=== PATIENT | male | born 1965 | race Caucasian/White ===

== ENCOUNTER 2025-06-30 12:33 | Emergency (ER) | payer OTHER, SELFPAY ==
[2025-06-30 12:47] VITALS: BP 148/89
[2025-06-30 13:14] VITALS: BMI 30.4
[2025-06-30 13:23] LABS: Hematocrit 48.3 % (39.0-52.0); Hemoglobin 16.5 g/dL (13.0-18.0); Mean Corp Hgb Conc. 34.2 g/dL (33.0-37.0); Mean Corpuscular Volume 84.6 fL (80.0-94.0); Nucleated Red Blood Cells % 0 % (-); Platelet Count 209 10^3/uL (130-400); Red Cell Dist. Width 12.5 % (11.5-14.5)
[2025-06-30] MEDS: PEPCID 20 MG IV (13:30)
[2025-06-30] MEDS: CARAFATE SUSPENSION 1 GM PO (13:30)
[2025-06-30 13:45] LABS: ALT (SGPT) 55 U/L (0-50); AST (SGOT) 45 U/L (17-59); Albumin 4.2 g/dl (3.5-5.0); Alkaline Phosphatase 69 U/L (38-126); Blood Urea Nitrogen 16 mg/dl (9-20); Calcium 9.9 mg/dl (8.4-10.2); Carbon Dioxide 25 mmol/L (22-30); Chloride 106 mmol/L (98-107); Estimated Creatinine Clearance 84 ml/min; Glucose 114 mg/dl (70-99); Lipase 126 U/L (23-300); Potassium 4.2 mmol/L (3.5-5.1); Sodium 135 mmol/L (135-145); Total Protein 7.1 g/dl (6.3-8.2); eGFR > 60.00
--- NOTE | 2025-06-30 14:26 | ED.GENMED ---
History of Present Illness
General
Chief Complaint: Abdominal Symptoms
Time Seen by Provider: 06/30/25 13:01
History of Present Illness
History of Present Illness:
60-year-old male with history of migraines presents to the emergency department for evaluation of epigastric pain for the past 2 to 3 weeks resulting in anorexia and poor appetite, reports severe increase in pain within seconds to minutes of
ingestion of any food. Prior history of cholecystectomy. No fevers or chills. No vomiting or melena. Does not take NSAIDs often but does use oral tobacco products. Reports pain is constant but does worsen after food intake, never seems to find
any relief
Past History
Past History
ED Past Medical History: Other (Diverticulitis, kidney stones, 'fibromyalgia the lower legs')
ED Past Surgical History: Orthopedic and Other (Partial thyroidectomy)
Patient has exhibited threatening behavior?: No
PSI?: No
Social History
Tobacco: Former smoker
Alcohol: Occasional
Drug: None
Personal:
Living: with family
Family History
Family History: Other (diabetes, stroke, osteoporosis)
Review of Systems
Review of Systems
Allergies reviewed?: Yes
All Other Systems: ROS reviewed and negative except as documented in HPI and ROS
Phy Exam
Physical Exam
Physical Exam:
GEN: Well appearing, NAD, WDWN
HEENT: Oral mucosa moist, no scleral icterus
Cardiac: Regular rate
Lung: No respiratory distress, no tachypnea
Abdomen: Soft, minimal to no epigastric tenderness, no rigidity or masses
MSK: No gross deformity or injuries
Skin: Good color, no pallor or jaundice, no rashes
Neuro: AO x3, moves all extremities freely
Psych: Calm, cooperative
Course
Orders/Labs/Results
Orders:
Orders
06/30/25 13:11
Famotidine [Pepcid] 20 mg IV NOW STA
Sucralfate Suspension [Carafate Suspension] 1 gm PO NOW STA
06/30/25 13:15
Complete Blood Count/With Diff Urgent
Comprehensive Metabolic Panel Urgent
Lipase Urgent
06/30/25 13:22
Sucralfate Suspension [Carafate Suspension] 1 gm .ROUTE .STK-MED ONE
Abnormal Lab Results
06/30/25
13:15
Absolute Monos (auto) 0.7 H 10^3/uL
(0.1-0.6)
Lymphocytes % 20.4 L %
(20.5-51.1)
Glucose 114 H mg/dl
(70-99)
Total Bilirubin 1.5 H mg/dl
(0.2-1.3)
ALT 55 H U/L
(0-50)
06/30/25 13:15
06/30/25 13:15
Vital Signs
Initial and Last Documented VS:
Initial Vital Signs
Temp Pulse Resp BP Pulse Ox
98.0 F 54 20 148/89 94
06/30/25 12:47 06/30/25 12:47 06/30/25 12:47 06/30/25 12:47 06/30/25 12:47
Last Documented Vital Signs
Temp Pulse Resp BP Pulse Ox
98.0 F 54 20 148/89 94
06/30/25 12:47 06/30/25 12:47 06/30/25 12:47 06/30/25 12:47 06/30/25 14:30
MDM/Problems Addressed
MDM/Problems Addressed:
Abdominal exam is benign and labs are reassuring, clinical picture most consistent with peptic ulcer disease given recurrence of pain after eating. Less likely SMA syndrome given that pain is present consistently and not only after eating. Will
treat with H2 alexandra, PPI, Carafate, and recommend close GI follow-up
*Pulse Oximetry
SaO2: 94
Oxygen Mode of Delivery: Room air
Patient hypoxic: no
*Critical Care Note
Total Time (30-74mins, 75-104mins- exclusive of procedures): Not Applicable
ED Attending Note
-
Portions of this chart may have been created with voice recognition software.� Occasional wrong word or��sound alike� substitutions may have occurred due to the inherent limitations of voice recognition software.
Discharge Plan
Departure
Patient Disposition: Home (Routine Discharge)
Date of Disposition: 06/30/25
Time of Disposition: 14:29
Patient with high blood pressure during this ER visit?: Yes
Discharge Problem:
Gastritis
Instructions: Peptic ulcer - ED (DC)
Prescriptions:
New
pantoprazole 40 mg tablet,delayed release (DR/EC)
40 mg PO BID Qty: 30 0RF
sucralfate [Carafate] 1 gram tablet
1 g PO AC Qty: 60 0RF
famotidine 20 mg tablet
20 mg PO BID 7 Days Qty: 14 0RF
oxycodone 5 mg tablet
5 mg PO Q8H PRN (Reason: Pain) Qty: 10 0RF
No Action
zolpidem 10 MG tablet
10 mg PO HSPRN PRN (Reason: sleep)
Patient Comments:
11/18/20 - pt last picked up 07/08/20 #30
oxycodone 15 MG tablet
15 mg PO Q6H PRN (Reason: leg spasms)
acetaminophen 325 mg Tablet
650 mg PO Q4HPRN PRN (Reason: Mild Pain / Temp > 101) Qty: 30 0RF
Referrals:
George Sotelo MD [Family Provider, Family Practice]
Ronna Adame DO [Active, Gastroenterology]
Interventions
Interventions:
*Risk Screen - Suicide Last Done: 06/30/25 12:47
*General Assessment Last Done: 06/30/25 12:47
*Nursing Disposition Last Done: 06/30/25 14:39
AH-Nmzqme-Ebdjcbbpva Assessment Last Done: 06/30/25 13:26
Discharge Date and Time
Discharge Date/Time: 06/30/25 14:40
Print Language: GRENADIAN
== END 2025-06-30 14:40 | disposition home or self-care (01) ==
LOC: EMR 12:33
PROVIDERS: Physician Assistant; EMERGENCY PHYSICIAN Emergency Medicine; FAMILY PHYSICIAN Family Medicine
DX: K29.70 Gastritis, unspecified, without bleeding (principal); M79.7 Fibromyalgia; Z87.891 Personal history of nicotine dependence
CPT/HCPCS: 99284; 96374; 80053; 83690; 85025